=== PATIENT | female | born 1955 | race Caucasian/White ===

== ENCOUNTER 2021-09-28 17:39 | Inpatient (IN) | payer MEDICARE, MEDICAID, SELFPAY ==
[2021-09-28 17:48] VITALS: BP 176/92; PULSE 91; RESP 24; TEMP 36.6; O2SAT 94; BMI 25.0
--- NOTE | 2021-09-28 18:01 | CTR_ITS ---
PROCEDURE INFORMATION: Exam: CT Cervical Spine Without Contrast Exam date and time: 09/28/2021 6:01 PM Age: 65 years old Clinical indication: Injury or trauma; Fall; Blunt trauma TECHNIQUE: Imaging protocol: Computed tomography images of the cervical spine without contrast. Axial, coronal and sagittal reformatted images were created and reviewed. Radiation optimization: All CT scans at this facility use at least one of these dose optimization techniques: automated exposure control; mA and/or kV adjustment per patient size (includes targeted exams where dose is matched to clinical indication); or iterative reconstruction. COMPARISON: CT head wo con* [id number] 09/28/2021 6:27 PM RADIATION DOSE METRICS: Total DLP (mGy-cm): 558.72 FINDINGS: Bones/joints: Osteopenia. Straightening of the normal cervical lordosis. Congenital nonunion of the C1 posterior arch. No CT evidence of acute fracture, dislocation or subluxation. Minimal retrolisthesis of C3 on C4. Alignment otherwise anatomic. Minimal levoscoliosis. Vertebral body heights maintained. Discs/Spinal canal/Neural foramina: Multilevel degenerative changes, characterized by disc space narrowing, osteophytosis and uncovertebral and facet joint hypertrophy. Multilevel spinal canal and neural foraminal narrowing. Lungs: Grossly unremarkable. Soft tissues: Grossly unremarkable. CT/CT cervical spin wo con* [id number] IMPRESSION: 1. No CT evidence of acute cervical spine traumatic injury. 2. Additional findings, as above. Radiation Dose CTDIVOL = (mGy): DLP = 558.72 (mGy-cm)
--- NOTE | 2021-09-28 18:01 | CTR_ITS ---
PROCEDURE INFORMATION: Exam: CT Head Without Contrast Exam date and time: 09/28/2021 6:01 PM Age: 65 years old Clinical indication: Injury or trauma; Fall; Blunt trauma (contusions or hematomas) TECHNIQUE: Imaging protocol: Computed tomography of the head without contrast. Axial, coronal and sagittal reformatted images were created and reviewed. Radiation optimization: All CT scans at this facility use at least one of these dose optimization techniques: automated exposure control; mA and/or kV adjustment per patient size (includes targeted exams where dose is matched to clinical indication); or iterative reconstruction. COMPARISON: CT head wo con* [id number] 02/21/2015 5:11 PM RADIATION DOSE METRICS: Total DLP (mGy-cm): 785.69 FINDINGS: Brain: Subtle, patchy areas of hypoattenuation in the periventricular and subcortical white matter, nonspecific but suggestive of mild chronic small vessel ischemic disease. No CT evidence of acute intracranial hemorrhage or acute territorial infarction. No significant mass effect or midline shift. Basal cisterns patent. Cerebral ventricles: Prominence of the cortical sulci, cisterns and ventricular system, consistent with cerebral and cerebellar volume loss. Paranasal sinuses: Minimal ethmoid mucosal thickening.. No fluid levels. Mastoid air cells: Grossly unremarkable. Bones/joints: No acute osseous abnormality. Soft tissues: Left periorbital soft tissue injury. CT/CT head wo con* [id number] IMPRESSION: 1. No CT evidence of acute intracranial pathology. 2. Additional findings, as above. Radiation Dose CTDIVOL = (mGy): DLP = 785.69 (mGy-cm)
--- NOTE | 2021-09-28 18:01 | XRR_ITS ---
PROCEDURE INFORMATION: Exam: XR Chest Exam date and time: 09/28/2021 6:01 PM Age: 65 years old Clinical indication: Sternal or substernal pain; Patient HX: AMS; Additional info: Cp TECHNIQUE: Imaging protocol: XR of the chest. Views: 1 view. COMPARISON: CR Chest 1 [place] [id number] 09/05/2017 1:33 PM FINDINGS: Lungs: Streaky opacities at the lung bases, likely secondary to atelectasis and/or scarring. No consolidation. Pleural spaces: Unremarkable. No pleural effusion. No pneumothorax. Heart/Mediastinum: Unremarkable. No cardiomegaly. Vasculature: Senescent changes of the aorta. Bones/joints: No acute osseous abnormality. Mild degenerative changes of the spine and shoulders. XR/XR chest 1V portable [id number] IMPRESSION: No acute radiographic findings. Radiation Dose CTDIVOL = (mGy): DLP = (mGy-cm)
--- NOTE | 2021-09-28 18:02 | ECG_ITS ---
[facility] Test Date: 2021-09-28 Pat Name: Nikki Esteves Department: Room: Gender: Female [employer]ing V[employer] Tender: : 1955 Requested By: Jonathon Akers Order Number: [id number] Yvette MD: Karen García M.D. Measurements Intervals [place] Rate: 78 P: 78 IN: 153 QRS: 74 QRSD: 102 T: 69 QT: 384 QTc: 438 Interpretive Statements SINUS RHYTHM WITH SINUS ARRHYTHMIA Compared to ECG 09/05/2017 13:33:56 No significant changes Electronically Signed On 09-28-2021 20:46:13 WATCHSTANDER by Karen García M.D. [email or web address] [id number]
--- NOTE | 2021-09-28 18:28 | CTR_ITS ---
PROCEDURE INFORMATION: Exam: CT Maxillofacial Without Contrast Exam date and time: 09/28/2021 6:28 PM Age: 65 years old Clinical indication: Injury or trauma; Fall; Blunt trauma (contusions or hematomas); Forehead and orbit/periorbital; Left TECHNIQUE: Imaging protocol: Computed tomography images of the face without contrast. Axial, coronal and sagittal reformatted images were created and reviewed. Radiation optimization: All CT scans at this facility use at least one of these dose optimization techniques: automated exposure control; mA and/or kV adjustment per patient size (includes targeted exams where dose is matched to clinical indication); or iterative reconstruction. COMPARISON: CT head wo con* [id number] 09/28/2021 6:27 PM RADIATION DOSE METRICS: Total DLP (mGy-cm): 663.45 FINDINGS: Orbital cavity: Orbits are normal. Globes are unremarkable. Bones/joints: No acute fracture. Paranasal sinuses: Mild ethmoid mucosal thickening. Soft tissues: Left periorbital soft tissue injury. CT/CT facial bones wo con* [id number] IMPRESSION: 1. No acute facial bone fracture. 2. Additional findings, as above. Radiation Dose CTDIVOL = (mGy): DLP = 663.45 (mGy-cm)
--- NOTE | 2021-09-28 18:37 | W.ED.AMS ---
HPI - Altered Mental Status General: Chief Complaint: Altered Mental Status Stated Complaint: LARGE SWELLING TO THE EYE/ LEFT ARM Time Seen by Provider: 09/28/21 17:40 Source: patient and EMS Mode of arrival: EMS Limitations: altered mental status History of Present Illness: HPI narrative: 65-year-old female who per EMS lives a day apartment complex her neighbors states that she is usually extremely active and I would seen her in 2 days. And went to check on her and found her down on the floor with bruising and altered. Here patient is very altered she is able to tell me her name but is confused does not know the year does not know what happened she does have bruising to the left side of her head she was unable to stand patient is very dirty Review of Systems General: Reports: ROS unobtainable due to mental status Physical Exam Const: COMMON NORMALS: negative for patient oriented x3 EXAM LIMITATIONS: altered mental status GENERAL APPEARANCE: in distress HENMT: COMMON NORMALS: normocephalic HEAD & SCALP: normocephalic OTHER: bruising to left forehead Eye: COMMON NORMALS: Equal, round and reactive pupils present and EOMs intact bilaterally PUPIL: Yes Equal, round and reactive pupils present Neck/C-Spine: COMMON NORMALS: full ROM and supple Chest: COMMONS NORMALS: normal inspection of the chest and normal palpation of entire chest wall Resp: COMMON NORMALS: normal respiratory effort, No retractions, No use of accessory muscles and clear to auscultation bilaterally AUSCULTATION: clear to auscultation bilaterally Cardio: COMMON NORMALS: regular rate, regular rhythm and No murmurs present (Cardio) RATE: regular rate RHYTHM: regular rhythm GI: COMMON NORMALS: Normal to inspection, nondistended, normoactive bowel sounds present, Soft to palpation, non-tender and no masses PALPATION: Yes Soft to palpation Extremity: COMMON NORMALS: normal to inspection and full ROM Neuro: COMMON NORMALS: moves all extremities and no focal motor deficits; negative for patient oriented x3 Psych: COMMON NORMALS: cooperative; negative for mental status grossly normal and negative for Normal thought process present THOUGHT PROCESS: abnormal Skin: COMMON NORMALS: no rashes or lesions noted and no wounds GENERAL SKIN EXAM: no rashes or lesions noted Course Vital Signs: Vital signs: Vital Signs Temperature 97.9 F 09/28/21 18:59 Pulse Rate 94 09/28/21 20:12 Respiratory Rate 22 H 09/28/21 20:12 Blood Pressure 148/99 09/28/21 20:12 Pulse Oximetry 95 09/28/21 20:12 MDM - Altered Mental Status MDM Narrative: Medical decision making narrative: Patient presents here with altered mental status along with weakness patient here is only able to tell me her name does have bruising from her fall no signs of acute stroke or hemorrhage. Patient's last known normal was 2 days ago and she still quite weak possible UTI patient given Rocephin will admit at this time spoke to hospitalist. Lab Data: Labs: Lab Results 09/28/21 09/28/21 09/28/21 18:02 18:20 18:20 WBC 13.5 10^3/uL H 10 ^3/uL (4.0-10.0) RBC 5.45 10^6/uL H 10 ^6/uL (4.1-5.3) Hgb 17.4 g/dL H g/dL (11.5-15.3) Hct 51.1 % H % (37.0-47.0) MCV 93.8 fl fl (81-99) MCH 31.9 pg pg (28.0-34.0) MCHC 34.1 g/dL g/dL (30.0-36.0) RDW 13.2 % % (12.1-15.1) Plt Count 148 10^3/cmm 10^3 /cmm (130-400) MPV 11.5 fL H fL (7.4-10.4) Neut % (Auto) 81.0 % % Lymph % (Auto) 11.0 % % [place] % (Auto) 7.1 % % Eos % (Auto) 0.1 % % Baso % (Auto) 0.5 % % Neut # (Auto) 10.94 10^3/uL H 1 0^3/uL (1.8-7.7) Lymph # (Auto) 1.5 10^3/uL 10^3/ uL (0.8-4.8) [place] # (Auto) 1.0 10^3/uL H 10^ 3/uL (0.2-0.9) Eos # (Auto) 0.0 10^3/uL 10^3/ uL (0.0-0.8) Baso # (Auto) 0.1 10^3/uL 10^3/ uL (0.0-0.1) Nucleated RBC % (a uto) 0 % % Nucleated RBCs # 0.0 /100WBC /100W BC PT INR Sodium Cancelled Potassium Cancelled Chloride Cancelled Carbon Dioxide Cancelled Anion Gap Cancelled BUN Cancelled Creatinine Cancelled GFR Calculation Cancelled Glucose Cancelled Calculated Osmolal ity Cancelled Calcium Cancelled Total Bilirubin Cancelled AST Cancelled ALT Cancelled Alkaline Phosphata se Cancelled Creatine Kinase Cancelled Total Protein Cancelled Albumin Cancelled Globulin Cancelled Urine Color Yellow (Yellow) Urine Appearance Clear (CLEAR) Urine pH 5 (5-7) Ur Specific Gravit y 1.020 (1.005-1.030) Urine Protein 1+ H (Negative) Urine Glucose (UA) Norm (Normal) Urine Ketones 1+ H (Negative) Urine Blood Neg (Negative) Urine Nitrate Negative (Negative) Urine Bilirubin 2+ H (Negative) Urine Urobilinogen 1 mg/dL H mg/dL (Negative) Ur Leukocyte Cherise ase Trace H (Negative) Urine RBC 0-4 /hpf H /hpf (0-2) Urine WBC 5-10 /hpf H /hpf (0-5) Ur Squamous Epith Cells 0-4 /hpf H /hpf (0-5) Amorphous Sediment Not Reportable Urine Bacteria 2+ /hpf H /hpf (NONE) Urine Mucus 1+ /hpf /hpf 09/28/21 09/28/21 09/28/21 18:20 19:15 19:15 WBC RBC Hgb Hct MCV MCH MCHC RDW Plt Count MPV Neut % (Auto) Lymph % (Auto) [place] % (Auto) Eos % (Auto) Baso % (Auto) Neut # (Auto) Lymph # (Auto) [place] # (Auto) Eos # (Auto) Baso # (Auto) Nucleated RBC % (a uto) Nucleated RBCs # PT Cancelled 14.20 SECONDS SEC ONDS (12.1-14.9) INR Cancelled 1.07 (0.8-1.2) Sodium 135 mmol/L L mmol /L (136-145) Potassium 4.2 mmol/L mmol/L (3.5-5.1) Chloride 93 mmol/L L mmol/ L (98-107) Carbon Dioxide 26 mmol/L mmol/L (22-29) Anion Gap 20.2 H (5-19) BUN 39 mg/dL H mg/dL (8-23) Creatinine 1.5 mg/dL H mg/dL (0.5-0.9) GFR Calculation 34.7 mL/min L mL/ min (90-130) Glucose 291 mg/dL H mg/dL (65-115) Calculated Osmolal ity 300 mOsm/kg H mOs m/kg (285-295) Calcium 10.0 mg/dL mg/dL (8.5-10.5) Total Bilirubin 0.7 mg/dL mg/dL (0.15-1.2) AST 17 U/L U/L (0-32) ALT 18 U/L U/L (0-33) Alkaline Phosphata se 98 IU/L IU/L (35-105) Creatine Kinase 253 U/L H U/L (26-192) Total Protein 7.7 g/dL g/dL (6.6-8.7) Albumin 4.4 g/dL g/dL (3.5-5.2) Globulin 3.3 g/dL g/dL (1.3-4.6) Urine Color Urine Appearance Urine pH Ur Specific Gravit y Urine Protein Urine Glucose (UA) Urine Ketones Urine Blood Urine Nitrate Urine Bilirubin Urine Urobilinogen Ur Leukocyte Cherise ase Urine RBC Urine WBC Ur Squamous Epith Cells Amorphous Sediment Urine Bacteria Urine Mucus Imaging Data^: CT Head: Radiologist's impression: [address] [address] [address] Scan Report Signed Patient: Nikki Esteves Unit #: [id number] : 1955 Age/Sex: 65 / F ADM Date: 09/28/21 Loc: ER Room/Bed: Attending Dr: Ordering Provider/Ordering MD: Jonathon Akers MD Date of Service: 09/28/21 Procedure(s): CT head wo con* [id number] Accession Number(s): [id number] Report Number: [id number] PROCEDURE INFORMATION: Exam: CT Head Without Contrast Exam date and time: 09/28/2021 6:01 PM Age: 65 years old Clinical indication: Injury or trauma; Fall; Blunt trauma (contusions or hematomas) TECHNIQUE: Imaging protocol: Computed tomography of the head without contrast. Axial, coronal and sagittal reformatted images were created and reviewed. Radiation optimization: All CT scans at this facility use at least one of these dose optimization techniques: automated exposure control; mA and/or kV adjustment per patient size (includes targeted exams where dose is matched to clinical indication); or iterative reconstruction. COMPARISON: CT head wo con* [id number] 02/21/2015 5:11 PM RADIATION DOSE METRICS: Total DLP (mGy-cm): 785.69 FINDINGS: Brain: Subtle, patchy areas of hypoattenuation in the periventricular and subcortical white matter, nonspecific but suggestive of mild chronic small vessel ischemic disease. No CT evidence of acute intracranial hemorrhage or acute territorial infarction. No significant mass effect or midline shift. Basal cisterns patent. Cerebral ventricles: Prominence of the cortical sulci, cisterns and ventricular system, consistent with cerebral and cerebellar volume loss. Paranasal sinuses: Minimal ethmoid mucosal thickening.. No fluid levels. Mastoid air cells: Grossly unremarkable. Bones/joints: No acute osseous abnormality. Soft tissues: Left periorbital soft tissue injury. CT/CT head wo con* [id number] IMPRESSION: 1. No CT evidence of acute intracranial pathology. 2. Additional findings, as above. Radiation Dose CTDIVOL = (mGy): DLP = 785.69 (mGy-cm) Dictated By: Rodrigo Schultz MD Signed By: Rodrigo Schultz MD Signed Date/Time: 09/28/211909 DD/ [address]: Radiologist's impression: [address] [address] [address] Scan Report Signed Patient: Nikki Esteves Unit #: [id number] : 1955 Age/Sex: 65 / F ADM Date: 09/28/21 Loc: ER Room/Bed: Attending Dr: Ordering Provider/Ordering MD: Jonathon Akers MD Date of Service: 09/28/21 Procedure(s): CT cervical spin wo con* [id number] Accession Number(s): [id number] Report Number: [id number] PROCEDURE INFORMATION: Exam: CT Cervical Spine Without Contrast Exam date and time: 09/28/2021 6:01 PM Age: 65 years old Clinical indication: Injury or trauma; Fall; Blunt trauma TECHNIQUE: Imaging protocol: Computed tomography images of the cervical spine without contrast. Axial, coronal and sagittal reformatted images were created and reviewed. Radiation optimization: All CT scans at this facility use at least one of these dose optimization techniques: automated exposure control; mA and/or kV adjustment per patient size (includes targeted exams where dose is matched to clinical indication); or iterative reconstruction. COMPARISON: CT head wo con* [id number] 09/28/2021 6:27 PM RADIATION DOSE METRICS: Total DLP (mGy-cm): 558.72 FINDINGS: Bones/joints: Osteopenia. Straightening of the normal cervical lordosis. Congenital nonunion of the C1 posterior arch. No CT evidence of acute fracture, dislocation or subluxation. Minimal retrolisthesis of C3 on C4. Alignment otherwise anatomic. Minimal levoscoliosis. Vertebral body heights maintained. Discs/Spinal canal/Neural foramina: Multilevel degenerative changes, characterized by disc space narrowing, osteophytosis and uncovertebral and facet joint hypertrophy. Multilevel spinal canal and neural foraminal narrowing. Lungs: Grossly unremarkable. Soft tissues: Grossly unremarkable. CT/CT cervical spin wo con* [id number] IMPRESSION: 1. No CT evidence of acute cervical spine traumatic injury. 2. Additional findings, as above. Radiation Dose CTDIVOL = (mGy): DLP = 558.72 (mGy-cm) Dictated By: Rodrigo Schultz MD Signed By: Rodrigo Schultz MD Signed Date/Time: 09/28/211911 DD/ 00 EKG Data^: EKG 1: Attestation: I personally reviewed and interpreted this EKG as follows: EKG interpretation date: 09/28/21 EKG interpretation time: 19:01 Interpretation: nsr hr [address] or t wave abnormalities qrs 102 qtc 417 Discharge Plan Discharge Patient Disposition: Admitted As Inpatient Clinical Impression: Altered mental status, Weakness Condition: Stable Coding Level of Care Code ED Supervisor Cloth Winding for Sorin Velazco
[2021-09-28 18:40] LABS: Basophils # 0.1 10^3/uL (0.0-0.1); Basophils % 0.5 %; Eosinophils % 0.1 %; Hematocrit 51.1 % (37.0-47.0); Hemoglobin 17.4 g/dL (11.5-15.3); Lymphocytes # 1.5 10^3/uL (0.8-4.8); Mean Corpuscular HGB Conc 34.1 g/dL (30.0-36.0); Mean Corpuscular Hemoglobin 31.9 pg (28.0-34.0); Mean Corpuscular Volume 93.8 fl (81-99); Mean Platelet Volume 11.5 fL (7.4-10.4); Monocytes % 7.1 %; Neutrophils # 10.94 10^3/uL (1.8-7.7); Nucleated Red Blood Cells % 0 %; Platelet Count 148 10^3/cmm (130-400); Red Blood Count 5.45 10^6/uL (4.1-5.3); Red Cell Distribution Width 13.2 % (12.1-15.1); White Blood Count 13.5 10^3/uL (4.0-10.0)
[2021-09-28 18:45] LABS: Slide Review Slide Review Perform
--- NOTE | 2021-09-28 18:50 | XRR_ITS ---
PROCEDURE INFORMATION: Exam: XR Left Elbow Exam date and time: 09/28/2021 6:50 PM Age: 65 years old Clinical indication: Injury or trauma; Fall; Blunt trauma (contusions or hematomas); Elbow; Left; Injury date: 09/28/2021; Injury details: Fell today; AMS TECHNIQUE: Imaging protocol: XR Left elbow. Views: 3 or more views. COMPARISON: No relevant prior studies available. FINDINGS: Bones/joints: No radiographic evidence of acute fracture or dislocation. Alignment anatomic. Joint spaces preserved. No definite effusion. Soft tissues: Grossly unremarkable. XR/XR elbow LT min 3V* [id number] IMPRESSION: No acute radiographic findings. Radiation Dose CTDIVOL = (mGy): DLP = (mGy-cm)
[2021-09-28 18:59] VITALS: BP 136/100; PULSE 73; RESP 20; TEMP 36.6; O2SAT 96
[2021-09-28 19:17] LABS: Protein Urine 1+ (Negative); Urine Appearance Clear (CLEAR); Urine Color Yellow (Yellow); pH Urine 5 (5-7)
[2021-09-28 19:18] LABS: Add Urine Microscopic? YES; Bilirubin Urine 2+ (Negative); Blood Urine Neg (Negative); Glucose Urine UA Norm (Normal); Ketones Urine 1+ (Negative); Leukocyte Esterase Urine Trace (Negative); Nitrate Urine Negative (Negative); Urobilinogen Urine 1 mg/dL (Negative)
[2021-09-28 19:20] LABS: RBC Urine 0-4 /hpf (0-2)
[2021-09-28 19:21] LABS: Add Urine Culture? Yes; Bacteria Urine 2+ /hpf; Mucus Urine 1+ /hpf; Squamous Epithelial Cell Urine 0-4 /hpf (0-5)
[2021-09-28 19:56] LABS: Alanine Aminotransferase 18 U/L (0-33); Albumin Level 4.4 g/dL (3.5-5.2); Alkaline Phosphatase 98 IU/L (35-105); Anion Gap 20.2 (5-19); Aspartate Amino Transferase 17 U/L (0-32); Blood Urea Nitrogen 39 mg/dL (8-23); Carbon Dioxide 26 mmol/L (22-29); Chloride 93 mmol/L (98-107); Creatine Phosphokinase 253 U/L (26-192); Globulin 3.3 g/dL (1.3-4.6); Glomerular Filtration Rate 34.7 mL/min (90-130); Glucose 291 mg/dL (65-115); Osmolality Calculated 300 mOsm/kg (285-295); Potassium 4.2 mmol/L (3.5-5.1); Sodium 135 mmol/L (136-145); Total Bilirubin 0.7 mg/dL (0.15-1.2); Total Protein 7.7 g/dL (6.6-8.7)
[2021-09-28] MEDS: sodium chloride 0.9% 1,000 ML 999 ML IV (20:00)
[2021-09-28 20:01] LABS: INR 1.07 (0.8-1.2)
[2021-09-28 20:12] VITALS: BP 148/99; PULSE 94; RESP 22; O2SAT 95
[2021-09-28 20:38] LABS: Acetaminophen < 5.0 ug/mL (10-30); Alcohol Level < 10 mg/dL (0-10); Salicylate < 0.3 mg/dL (3-10)
--- NOTE | 2021-09-28 22:12 | PM.HP ---
Providers/Chief Complaint Primary Care Provider: Nikki Rahman DO Chief Complaint: LARGE SWELLING TO THE EYE/ LEFT ARM History of Present Illness Nikki Esteves is a 65 year old female was found confused on the floor of her house. Was seen in her regular state of health about 2 days ago. Was brought by EMS to emergency room. Here her mental status improved. She is currently awake and alert. However she is noncooperative. She is not willing to answer to my questions and did not allow me to examine her. She denies any active complaints. She answers no to every question that I asked. Her past medical history is unknown. Review of Systems General: Reports: ROS unobtainable due to mental status Vitals/I&O/Wt Last Vital Signs Temp 97.9 F 09/28/21 18:59 Pulse 94 09/28/21 20:12 Resp 22 H 09/28/21 20:12 BP 148/99 09/28/21 20:12 Pulse Ox 95 09/28/21 20:12 Weight last 48 hrs Weight 68.039 kg Physical Exam Narrative: EXAM NARRATIVE: The patient is awake and alert. No acute distress. Calm when left alone. No dysarthria or aphasia. Extraocular muscles are intact. Multiple bruises on the forehead. She did not lower her mask to evaluate the lower part of the face. Neck seems to be supple. No evidence of tenderness when she moves. No JVD. Midline trachea. No respiratory distress. Aeration seems to be normal. No distant wheezes. Abdomen is soft. Obese. Extremities she moves all her extremities. No peripheral cyanosis. Data : 09/28/21 18:20 09/28/21 19:15 Other Labs: Laboratory Results WBC 13.5 10^3/uL (4.0-10.0) H 09/28/21 18:20 RBC 5.45 10^6/uL (4.1-5.3) H 09/28/21 18:20 Hgb 17.4 g/dL (11.5-15.3) H 09/28/21 18:20 Hct 51.1 % (37.0-47.0) H 09/28/21 18:20 MCV 93.8 fl (81-99) 09/28/21 18:20 MCH 31.9 pg (28.0-34.0) 09/28/21 18:20 MCHC 34.1 g/dL (30.0-36.0) 09/28/21 18:20 RDW 13.2 % (12.1-15.1) 09/28/21 18:20 Plt Count 148 10^3/cmm (130-400) 09/28/21 18:20 MPV 11.5 fL (7.4-10.4) H 09/28/21 18:20 Neut % (Auto) 81.0 % 09/28/21 18:20 Lymph % (Auto) 11.0 % 09/28/21 18:20 [place] % (Auto) 7.1 % 09/28/21 18:20 Eos % (Auto) 0.1 % 09/28/21 18:20 Baso % (Auto) 0.5 % 09/28/21 18:20 Neut # (Auto) 10.94 10^3/uL (1.8-7.7) H 09/28/21 18:20 Lymph # (Auto) 1.5 10^3/uL (0.8-4.8) 09/28/21 18:20 [place] # (Auto) 1.0 10^3/uL (0.2-0.9) H 09/28/21 18:20 Eos # (Auto) 0.0 10^3/uL (0.0-0.8) 09/28/21 18:20 Baso # (Auto) 0.1 10^3/uL (0.0-0.1) 09/28/21 18:20 Nucleated RBC % (auto) 0 % 09/28/21 18:20 Nucleated RBCs # 0.0 /100WBC 09/28/21 18:20 PT 14.20 SECONDS (12.1-14.9) 09/28/21 19:15 INR 1.07 (0.8-1.2) 09/28/21 19:15 Sodium 135 mmol/L (136-145) L 09/28/21 19:15 Potassium 4.2 mmol/L (3.5-5.1) 09/28/21 19:15 Chloride 93 mmol/L (98-107) L 09/28/21 19:15 Carbon Dioxide 26 mmol/L (22-29) 09/28/21 19:15 Anion Gap 20.2 (5-19) H 09/28/21 19:15 BUN 39 mg/dL (8-23) H 09/28/21 19:15 Creatinine 1.5 mg/dL (0.5-0.9) H 09/28/21 19:15 GFR Calculation 34.7 mL/min (90-130) L 09/28/21 19:15 Glucose 291 mg/dL (65-115) H 09/28/21 19:15 Calculated Osmolality 300 mOsm/kg (285-295) H 09/28/21 19:15 Calcium 10.0 mg/dL (8.5-10.5) 09/28/21 19:15 Total Bilirubin 0.7 mg/dL (0.15-1.2) 09/28/21 19:15 AST 17 U/L (0-32) 09/28/21 19:15 ALT 18 U/L (0-33) 09/28/21 19:15 Alkaline Phosphatase 98 IU/L (35-105) 09/28/21 19:15 Creatine Kinase 253 U/L (26-192) H 09/28/21 19:15 Total Protein 7.7 g/dL (6.6-8.7) 09/28/21 19:15 Albumin 4.4 g/dL (3.5-5.2) 09/28/21 19:15 Globulin 3.3 g/dL (1.3-4.6) 09/28/21 19:15 Urine Color Yellow (Yellow) 09/28/21 18:02 Urine Appearance Clear (CLEAR) 09/28/21 18:02 Urine pH 5 (5-7) 09/28/21 18:02 Ur Specific Fults 1.020 (1.005-1.030) 09/28/21 18:02 Urine Protein 1+ (Negative) H 09/28/21 18:02 Urine Glucose (UA) Norm (Normal) 09/28/21 18: Urine Ketones 1+ (Negative) H 09/28/21 18:02 Urine Blood Neg (Negative) 09/28/21 18: Urine Nitrate Negative (Negative) 09/28/21 18: Urine Bilirubin 2+ (Negative) H 09/28/21 18: Urine Urobilinogen 1 mg/dL (Negative) H 09/28/21 18:02 Ur Leukocyte Esterase Trace (Negative) H 09/28/21 18:02 Urine RBC 0-4 /hpf (0-2) H 09/28/21 18:02 Urine WBC 5-10 /hpf (0-5) H 09/28/21 18:02 Ur Squamous Epith Cells 0-4 /hpf (0-5) H 09/28/21 18:02 Amorphous Sediment Not Reportable 09/28/21 18:02 Urine Bacteria 2+ /hpf (NONE) H 09/28/21 18:02 Urine Mucus 1+ /hpf 09/28/21 18:02 Salicylates < 0.3 mg/dL (3-10) L 09/28/21 19:15 Acetaminophen < 5.0 ug/mL (10-30) L 09/28/21 19:15 Ethyl Alcohol < 10 mg/dL (0-10) 09/28/21 19:[address] 09/28/21 18:01 IMPRESSION: 1. No CT evidence of acute cervical spine traumatic injury. 2. Additional findings, as above. Radiation Dose CTDIVOL = (mGy): DLP = 558.72 (mGy-cm) Chest X-Ray 09/28/21 18:01 IMPRESSION: No acute radiographic findings. Radiation Dose CTDIVOL = (mGy): DLP = (mGy-cm) Head CT 09/28/21 18:01 IMPRESSION: 1. No CT evidence of acute intracranial pathology. 2. Additional findings, as above. Radiation Dose CTDIVOL = (mGy): DLP = 785.69 (mGy-cm) Face CT 09/28/21 18:28 IMPRESSION: 1. No acute facial bone fracture. 2. Additional findings, as above. Radiation Dose CTDIVOL = (mGy): DLP = 663.45 (mGy-cm) Elbow X-Ray 09/28/21 18:50 IMPRESSION: No acute radiographic findings. Radiation Dose CTDIVOL = (mGy): DLP = (mGy-cm) A&P Assessment and plan (1) Altered mental status: Status: Acute (2) Weakness: Status: Acute (3) Dehydration: Status: Acute (4) UTI (urinary tract infection): Status: Acute Additional A&P Information 65-year-old female with unknown past medical history who is brought by EMS due to confusion, a fall in her house. She is found to have UTI, dehydration. She has hyperglycemia. Mental status has improved in the emergency room. Physical examination and interview are incomplete due to uncooperative patient. Altered mental status. Most likely multifactorial. Dehydration and UTI are suspected. We will closely monitor her. We will try to obtain more history from her providers in the morning if she does not improve and provide more history herself. UTI. We will continue Rocephin. Will wait for UCS. Dehydration. Will hydrate and monitor. Will replace electrolytes as needed. Hyperglycemia. We will start her on insulin sliding scale. We will check her A1c level. DVT prophylaxis. SCDs. Will decide on anticoagulants after completion of interview to make sure that there are no contraindications for use of blood thinners. Full code for now. Attestations Medical Necessity Statement*: Based on my assessment of patient's current condition and findings I expect that the patient will spend more than 2 midnights in the hospital. Coding Level of Care Code Acute Emergency Communications Officer for Sorin Velazco Diagnoses Altered mental status R41.82 Weakness R53.1 Dehydration E86.0 UTI (urinary tract infection) N39.0
[2021-09-28 22:23] VITALS: BP 132/98; PULSE 84; RESP 18; O2SAT 95
[2021-09-28 22:24] VITALS: BP 132/98; PULSE 84; RESP 18; O2SAT 95
[2021-09-28 23:30] VITALS: BMI 25.0
[2021-09-29] VITALS (7 sets, daily range): BP systolic 115–182; BP diastolic 70–98; PULSE 63–101; RESP 14–17; TEMP 36.3–37.2; O2SAT 88–98
[2021-09-29 00:02] LABS: Estmated Average Glucose 240
[2021-09-29] MEDS: cefTRIAXone 1,000 MG in sodium chloride 0.9% (plus) 50 ML 100 MG IV ×2 (00:23→21:21)
[2021-09-29] MEDS: sodium chloride 0.9% 1,000 ML 75 ML IV (00:23)
[2021-09-29 01:57] LABS: Amphetamines Screen Urine Negative (Negative); Barbiturates Screen Urine Negative (Negative); Benzodiazepines Screen Urine Negative (Negative); Cocaine Screen Urine Negative (Negative); Opiate Screen Urine Negative (Negative); PCP Screen Urine Negative (Negative); THC Screen Urine Negative (Negative)
[2021-09-29 04:51] LABS: Basophils # 0.1 10^3/uL (0.0-0.1); Basophils % 0.7 %; Eosinophils # 0.2 10^3/uL (0.0-0.8); Eosinophils % 1.4 %; Hematocrit 46.3 % (37.0-47.0); Hemoglobin 15.6 g/dL (11.5-15.3); Lymphocytes # 2.4 10^3/uL (0.8-4.8); Lymphocytes % 20.9 %; Mean Corpuscular HGB Conc 33.7 g/dL (30.0-36.0); Mean Corpuscular Hemoglobin 31.8 pg (28.0-34.0); Mean Corpuscular Volume 94.5 fl (81-99); Mean Platelet Volume 9.7 fL (7.4-10.4); Monocytes # 1.1 10^3/uL (0.2-0.9); Neutrophils # 7.51 10^3/uL (1.8-7.7); Neutrophils % 66.6 %; Nucleated Red Blood Cells % 0 %; Platelet Count 205 10^3/cmm (130-400); Red Cell Distribution Width 12.2 % (12.1-15.1); White Blood Count 11.3 10^3/uL (4.0-10.0)
[2021-09-29 05:15] LABS: Alanine Aminotransferase 15 U/L (0-33); Albumin Level 3.8 g/dL (3.5-5.2); Alkaline Phosphatase 85 IU/L (35-105); Anion Gap 18.6 (5-19); Aspartate Amino Transferase 15 U/L (0-32); Blood Urea Nitrogen 30 mg/dL (8-23); Calcium 8.7 mg/dL (8.5-10.5); Carbon Dioxide 24 mmol/L (22-29); Chloride 103 mmol/L (98-107); Globulin 2.8 g/dL (1.3-4.6); Glomerular Filtration Rate 49.7 mL/min (90-130); Glucose 228 mg/dL (65-115); Osmolality Calculated 307 mOsm/kg (285-295); Phosphorus 3.2 mg/dL (2.5-4.5); Potassium 3.6 mmol/L (3.5-5.1); Sodium 142 mmol/L (136-145); Total Bilirubin 0.5 mg/dL (0.15-1.2); Total Protein 6.6 g/dL (6.6-8.7)
[2021-09-29 06:44] LABS: Glucose Point of Care 239 mg/dL (70-110)
[2021-09-29] MEDS: insulin lispro 100 unit/1 mL SUBCUT ×4 (08:44→21:21)
--- NOTE | 2021-09-29 11:01 | PC.PHAR ---
pt states she takes care of her own medication-pt states she is still taking eliquis 5mg bid rx filled last 08/09/21 30d/s-pt states she is still takes lipitor 40mg daily pharmacy last filled 05/20/21 30d/s-pt states she is no longer taking lisinopril 10mg daily or metoprolol tartrate 50mg bid last filled on 05/20/21 30d/s-
[2021-09-29 11:59] LABS: Glucose Point of Care 196 mg/dL (70-110)
--- NOTE | 2021-09-29 14:32 | PM.PN ---
Subjective Subjective: Interval history: Patient was seen and examined this morning. She states she fell but other than that is unable to provide me with any history. She thinks that here 2000 but now she is in the hospital and knows her date of . Does not member how she fell but does remember that she fell. She does not recall an feeling lightheaded or dizzy prior to the fall. She also states she did not trip on anything she remembers. She lives alone at home. Vitals/I&O/Wt Last Vital Signs Temp 98.7 F 09/29/21 11:15 Pulse 88 09/29/21 11:15 Resp 17 09/29/21 11:15 BP 134/77 09/29/21 11:15 Pulse Ox 98 09/29/21 11:15 09/28/21 09/29/21 09/29/21 22:59 06:59 14:59 Intake Total 1000 / 1000 110 / 1110 360 / 360 Balance 1000 / 1000 110 / 1110 360 / 360 Weight last 48 hrs Weight 68.039 kg Weight 68.039 kg Physical Exam Narrative: EXAM NARRATIVE: General: Alert oriented x2, patient seen sitting up in bed appearing comfortable. HEENT: Normocephalic, atraumatic, EOMI, breathing room air. Patient does have a bruise around her left eye. Head does not have any lesions or signs of trauma. Cardio: Regular rate rhythm, normal S1-S2, no murmurs rubs gallops, Respiratory: Diminished bilateral air entry, no wheezes no rhonchi appreciated GI: Abdomen soft, nontender, nondistended, bowel sounds + Behavior: Appropriate and cooperative Extremities: Pulses 2+, no edema, no cyanosis. No tenderness to palpation at extremities. Neuro: Neurologically intact no focal neurological deficits. Walking test not performed. Data : 09/29/21 04:21 09/29/21 04:21 Micro: Microbiology 09/28/21 19:25 Blood Culture - Preliminary Blood SPECIMEN COLLECTED 09/28/21 19:25 Blood Culture - Preliminary Blood SPECIMEN COLLECTED A&P Assessment and plan (1) Altered mental status: Status: Acute (2) Weakness: Status: Acute (3) Dehydration: Status: Acute (4) UTI (urinary tract infection): Status: Acute Additional A&P Information 65-year-old female with unknown past medical history who is brought by EMS due to confusion, a fall in her house. She is found to have UTI, dehydration. She has hyperglycemia. Mental status has improved in the emergency room. Physical examination and interview are incomplete due to uncooperative patient admission. History was obtained today from the family. I spoke to patient's both sons over the phone and a conference call. They state patient does fall frequently at home on a daily basis and lives alone. She has had a stroke prior but they were unable to tell me how long ago. She also is a history of having an AL in the past and has placed cardiac stents. She does have diabetes mellitus with a high hemoglobin A1c but has not been placed on insulin by primary care doctor because patient is noncompliant with her medications and does tend to overdose on her meds because she sometimes forget if she has taken medications or not. Patient also is on Eliquis and cilostazol. One of the patient's son also states that patient has been taking pain pills including Xanax and if the doctor does not prescribe any she will tend to buy from the street. But they also state that recently they do not believe she has been taking any of those medications. They believe patient has peripheral neuropathy and cannot feel her feet and that is why tends to fall a lot. She did have a work-up done at [facility] and there was peripheral arterial disease diagnosed. The son states that there was 60 to 70% blockage in the vessels in her legs he does not remember which doctor they saw and does not remember any other specifics. Patient's primary care doctor is Dr. Reilly in [place]. [phone]. Patient is a smoker but does not drink alcohol. In the past multiple times a prison or correction facility placement has been brought up by the family but patient did not want to go there because she did not like the fact that her medications will be monitored. Both her sons believe that this is probably the reason why she opted not to go to a nursing facility. They do acknowledge that patient could benefit from a supervised living facility at this point due to patient's multiple fall history, being on a blood thinner and tending to overdose on medications. He also states she has good days and bad days and baseline she does have some confusion. They are unsure of her eating habits. Nearest family lives 5 hours away. #Altered mental status. Most likely multifactorial. Dehydration and UTI are suspected at admission. Altered mental status has resolved at this point. It seems patient is back to her baseline after speaking to family. Urine culture is pending. CT head negative. Face CT, chest x-ray, cervical C-spine, elbow x-ray unremarkable. No fractures identified. Patient will need case management referral. Physical therapy occupational therapy referral. #UTI. We will continue Rocephin. Will wait for UCS. #Dehydration. Will hydrate and monitor. Will replace electrolytes as needed. #Type 2 DM with complication of peripheral neuropathy: Presented with hyperglycemia. We will start her on insulin sliding scale. Hemoglobin A1c at 10. She has not been placed on insulin by primary care provider due to patient's history of tending to overdose and missing medications and being noncompliant. There is a strong concern of hypoglycemia as per the family due to medication misuse. For now we will keep patient on insulin sliding scale while in the hospital. DVT prophylaxis. SCDs. Patient is on Eliquis which has been resumed at this point. Full code Attestations Medical Necessity Statement*: Greater than 48-hour hospital stay Time Spent in Patient Care: Greater than 35 minutes Coding Level of Care Code Acute Fabric And Accessories Estimator for Chg Fwd Diagnoses Altered mental status R41.82 Weakness R53.1 Dehydration E86.0 UTI (urinary tract infection) N39.0
--- NOTE | 2021-09-29 14:43 | PM.EVENT ---
Event Note Event Note: History was obtained today from the family. I spoke to patient's both sons over the phone and a conference call. They state patient does fall frequently at home on a daily basis and lives alone. She has had a stroke prior but they were unable to tell me how long ago. She also is a history of having an HI in the past and has placed cardiac stents. She does have diabetes mellitus with a high hemoglobin A1c but has not been placed on insulin by primary care doctor because patient is noncompliant with her medications and does tend to overdose on her meds because she sometimes forget if she has taken medications or not. Patient also is on Eliquis and cilostazol. One of the patient's son also states that patient has been taking pain pills including Xanax and if the doctor does not prescribe any she will tend to buy from the street. But they also state that recently they do not believe she has been taking any of those medications. They believe patient has peripheral neuropathy and cannot feel her feet and that is why tends to fall a lot. She did have a work-up done at [facility] and there was peripheral arterial disease diagnosed. The son states that there was 60 to 70% blockage in the vessels in her legs he does not remember which doctor they saw and does not remember any other specifics. Patient's primary care doctor is Dr. Reilly in [place]. [phone]. Patient is a smoker but does not drink alcohol. In the past multiple times a skilled nursing or [facility] facility placement has been brought up by the family but patient did not want to go there because she did not like the fact that her medications will be monitored. Both her sons believe that this is probably the reason why she opted not to go to a nursing facility. They do acknowledge that patient could benefit from a supervised living facility at this point due to patient's multiple fall history, being on a blood thinner and tending to overdose on medications. He also states she has good days and bad days and baseline she does have some confusion. They are unsure of her eating habits. Nearest family lives 5 hours away. Event Notes Attestations Time Spent in Patient Care: Greater than 35 minutes
[2021-09-29 15:40] LABS: Folate Level 13.4 ng/mL (4.8-37.3)
[2021-09-29 15:57] LABS: Vitamin B12 283 pg/mL (232-1245)
[2021-09-29 16:58] LABS: Glucose Point of Care 290 mg/dL (70-110)
[2021-09-29 21:20] LABS: Glucose Point of Care 170 mg/dL (70-110)
[2021-09-29] MEDS: trazodone 50 mg Tablet PO (21:49)
[2021-09-30 02:04] VITALS: O2SAT 94
[2021-09-30 04:00] VITALS: BP 178/82; PULSE 96; RESP 12; TEMP 36.6; O2SAT 94
[2021-09-30] MEDS: sodium chloride 0.9% 1,000 ML 75 ML IV ×2 (04:35→04:37)
[2021-09-30 05:24] LABS: Basophils # 0.1 10^3/uL (0.0-0.1); Basophils % 0.9 %; Eosinophils # 0.3 10^3/uL (0.0-0.8); Eosinophils % 2.9 %; Hemoglobin 15.3 g/dL (11.5-15.3); Lymphocytes # 2.5 10^3/uL (0.8-4.8); Lymphocytes % 28.8 %; Mean Corpuscular HGB Conc 33.3 g/dL (30.0-36.0); Mean Corpuscular Hemoglobin 32.1 pg (28.0-34.0); Mean Corpuscular Volume 96.4 fl (81-99); Mean Platelet Volume 9.6 fL (7.4-10.4); Monocytes # 0.8 10^3/uL (0.2-0.9); Monocytes % 9.8 %; Neutrophils # 4.88 10^3/uL (1.8-7.7); Neutrophils % 57.2 %; Nucleated Red Blood Cells % 0 %; Platelet Count 152 10^3/cmm (130-400); Red Blood Count 4.77 10^6/uL (4.1-5.3); Red Cell Distribution Width 12.2 % (12.1-15.1); White Blood Count 8.5 10^3/uL (4.0-10.0)
[2021-09-30 05:45] LABS: Anion Gap 19.6 (5-19); Blood Urea Nitrogen 19 mg/dL (8-23); Calcium 8.9 mg/dL (8.5-10.5); Carbon Dioxide 21 mmol/L (22-29); Chloride 100 mmol/L (98-107); Glomerular Filtration Rate 71.8 mL/min (90-130); Glucose 235 mg/dL (65-115); Osmolality Calculated 294 mOsm/kg (285-295); Potassium 3.6 mmol/L (3.5-5.1); Sodium 137 mmol/L (136-145)
[2021-09-30 06:45] LABS: Glucose Point of Care 240 mg/dL (70-110)
[2021-09-30 07:35] VITALS: BP 180/90; PULSE 100; RESP 16; TEMP 36.5; O2SAT 95
--- NOTE | 2021-09-30 07:45 | ECG_ITS ---
[facility] Test Date: 2021-09-30 Pat Name: Nikki Esteves Department: Room: 252 Gender: Female Planning Intern: : 1955 Requested By: Estefanía Kaiser Order Number: [id number] Yvette MD: Carlos Boyd M.D. Measurements Intervals [place] Rate: 112 P: 69 OK: 139 QRS: 74 QRSD: 96 T: 72 QT: 345 QTc: 472 Interpretive Statements SINUS TACHYCARDIA WITH OCCASIONAL VENTRICULAR PREMATURE COMPLEXES Compared to ECG 09/28/2021 19:01:08 Ventricular premature complex(es) now present Sinus rhythm no longer present Sinus arrhythmia no longer present Electronically Signed On 09-30-2021 19:51:27 WINDOW SHADE ESTIMATOR by Carlos Boyd M.D. [id number]
[2021-09-30 08:47] VITALS: BP 180/90
[2021-09-30] MEDS: losartan 50 mg Tablet PO (08:47)
[2021-09-30] MEDS: atorvastatin 40 mg Tablet PO (08:48)
[2021-09-30] MEDS: apixaban 5 mg Tablet PO (08:48)
[2021-09-30] MEDS: insulin lispro 100 unit/1 mL SUBCUT ×2 (08:49→12:10)
[2021-09-30] MEDS: cilostazol 100 mg Tablet 50 MG PO (08:49)
[2021-09-30] MEDS: nicotine 14 mg Patch 1 PATCH TRANSDERMA (08:50)
[2021-09-30 10:56] LABS: Glucose Point of Care 413 mg/dL (70-110)
[2021-09-30 11:40] VITALS: BP 167/82; PULSE 114; RESP 18; TEMP 36.6; O2SAT 95
[2021-09-30] MEDS: sodium chloride 0.9% 500 ML IV (12:00)
--- NOTE | 2021-09-30 13:43 | PC.CHAP ---
Pastoral Care Encounter/Spiritual Assessment Type of Contact [] Declined vascular tech visit [] Patient/Family/Request visit [] Outpatient visit [] Follow-up visit [] Physician referral [] Code/Alert [xx] Routine visit [] Staff referral [] Actively dying [] Patient sleeping [] Family support [] [] Out of room [] Palliative care [] [] Receiving care in room [] Pre-surgical visit [] Trauma [] Long length of stay [] ICU visit [] Other: Relational/Emotional Strength [xx] Patient feels connected with others/family/visitors/staff [] Distress [] Loneliness/isolation [] Abandonment Spirituality of Patient [xx] Person of Jenny [] Attends Christianity of their Jenny [x] Believes in Prayer [xx] Reads Bible or Pentecostalism materials [] There are Spiritual issues to be addressed Nursing Home Social Worker Interventions [xx] Prayer [xx] Active listening [xx] Non-anxious presence [] Spiritual/emotional support [] Crisis/trauma care [] Spiritual counseling [] Bereavement support [] Provided bereavement packet [xx] Provided Bible/devotional materials [] Provided toy/stuffed animal, coloring book to patient or family member [] Provided Communion [] Anointing/[place] [] Salvation [xx] Completed spiritual assessment [] Other: Impact on Illness or Injury [] Angry [] Fearful [] Anxious [] Often cries [] Exhaustion [] Unable to work [] Unable to attend congregation [] Unable to walk/stand [] Unable to read [] Unable to drive [] Unable to eat/drink [] Unable to sleep [] Unable to be with family [] Patient intubated [] Other: Summary Patient is a very pleasant lady and easy to talk to. She stated she is much better and is being discharged later today and mita't wait to get home. Time spent with patient 12 minutes
--- NOTE | 2021-09-30 15:52 | PC.NURSE ---
student nurse all the student nurse documentation verified by this instructor for 09/30/21
[2021-09-30 16:00] VITALS: BP 164/81; PULSE 87; RESP 18; TEMP 36.8; O2SAT 94
--- NOTE | 2021-09-30 16:58 | P.DS_ITS ---
Discharge Providers Date of Admission: 09/28/21 20:02 Date of Discharge: September 30, 2021 Attending Provider at Admission: Ramírez Crenshaw Attending Provider at Discharge: Estefanía Kaiser MD Primary Care Provider: Nikki Rahman DO Diagnoses at Discharge Discharge Diagnosis (1) Altered mental status: Status: Acute (2) Weakness: Status: Acute (3) Dehydration: Status: Acute (4) UTI (urinary tract infection): Status: Acute Reason for Visit Reason for Visit: LARGE SWELLING TO THE EYE/ LEFT ARM Hospital Course Hospital Course HPI as per Dr. Crenshaw: Nikki Esteves is a 65 year old female was found confused on the floor of her house. Was seen in her regular state of health about 2 days ago. Was brought by EMS to emergency room. Here her mental status improved. She is currently awake and alert. However she is noncooperative. She is not willing to answer to my questions and did not allow me to examine her. She denies any active complaints. She answers no to every question that I asked. Her past medical history is unknown. Course: History was obtained today from the family. I spoke to patient's both sons over the phone and a conference call. They state patient does fall frequently at home on a daily basis and lives alone. She has had a stroke prior but they were unable to tell me how long ago. She also is a history of having an HI in the past and has placed cardiac stents. She does have diabetes mellitus with a high hemoglobin A1c but has not been placed on insulin by primary care doctor because patient is noncompliant with her medications and does tend to overdose on her meds because she sometimes forget if she has taken medications or not. Patient also is on Eliquis and cilostazol. One of the patient's son also states that patient has been taking pain pills including Xanax and if the doctor does not prescribe any she will tend to buy from the street. But they also state that recently they do not believe she has been taking any of those medications. They believe patient has peripheral neuropathy and cannot feel her feet and that is why tends to fall a lot. She did have a work-up done at [facility] and there was peripheral arterial disease diagnosed. The son states that there was 60 to 70% blockage in the vessels in her legs he does not remember which doctor they saw and does not remember any other specifics. Patient's primary care doctor is Dr. Reilly in [place]. [phone]. Patient is a smoker but does not drink alcohol. In the past multiple times a correction or shelter facility placement has been brought up by the family but patient did not want to go there because she did not like the fact that her medications will be monitored. Both her sons believe that this is probably the reason why she opted not to go to a nursing facility. They do acknowledge that patient could benefit from a supervised living facility at this point due to patient's multiple fall history, being on a blood thinner and tending to overdose on medications. He also states she has good days and bad days and baseline she does have some confusion. They are unsure of her eating habits. Nearest family lives 5 hours away. When seen on the day of discharge. Patient totally alert and oriented. He has refused to go to a correction at this point. She also states that she never fell multiple times at home and she only fell once. He states he has a very good support system her granddaughter comes over every day to take care of her and manage her medications with her. She states she would like to go home at this point. She also promises to go and follow-up with her primary care doctor. She also worked with physical therapy and did well. She did qualify for home health. She is agreeable to have a nurse come over to her house to check up on her. I called her primary care doctor Dr. Reilly and discussed her case with him. I also told him about the medication changes made with the patient at this visit. He stated that the patient was noncompliant to medications and she also does not frequently follow-up with him but he really hopes at this time she will come and see him. He last saw her in May. He also states that patient drinks alcohol as well. When I asked the patient about this she denied drinking alcohol. Patient is competent and able to make her own medical decisions. There was no infection seen during this hospital stay and patient clinically appears well. She will be discharged home with home health. Home health will be set up as an outpatient most likely as patient does not want to wait in the hospital for it to be all set before she leaves. She will see Dr. Reilly outpatient in his office. Patient's nurse was present the whole time when I was talking to the patient. She also spoke to case management. She appeared really well and totally mentally okay at time of discharge. Physical Exam Narrative: EXAM NARRATIVE: General: Alert oriented x3, patient seen sitting up in bed appearing comfortable. HEENT: Normocephalic, atraumatic, EOMI, breathing room air. Patient does have a bruise around her left eye. Head does not have any lesions or signs of trauma. Cardio: Regular rate rhythm, normal S1-S2, no murmurs rubs gallops, Respiratory: Diminished bilateral air entry, no wheezes no rhonchi appreciated GI: Abdomen soft, nontender, nondistended, bowel sounds + Behavior: Appropriate and cooperative Extremities: Pulses 2+, no edema, no cyanosis. No tenderness to palpation at extremities. Neuro: Neurologically intact no focal neurological deficits. Able to walk okay and not falling. Did well with physical therapy. Discharge Data Data Completed and Pending: Completed Studies During Hospitalization Category Date Time Status CT cervical spin wo con* 10384 Urge nt Cat Scan 09/28/21 18:[address] facial bones w o con* 76110 Urgen t Cat Scan 09/28/21 18:[address] head wo con* 7 0450 Urgent Cat Scan 09/28/21 18:01 Completed XR chest 1V ketan ble 35856 Urgent Exams 09/28/21 18:01 Completed XR elbow LT min 3 V* [id number] Stat Exams 09/28/21 18:50 Completed Pending at discharge Category Date Time Status Blood Culture Sta t Lab 09/28/21 19:25 Results Urine Culture Sta t Lab 09/28/21 18:02 Results Labs from last 24 hours 09/30/21 09/30/21 09/30/21 10:40 06:22 05:06 WBC RBC Hgb Hct MCV MCH MCHC RDW Plt Count MPV Neut % (Auto) Lymph % (Auto) [place] % (Auto) Eos % (Auto) Baso % (Auto) Neut # (Auto) Lymph # (Auto) [place] # (Auto) Eos # (Auto) Baso # (Auto) Nucleated RBC % (a uto) Nucleated RBCs # Sodium 137 Potassium 3.6 Chloride 100 Carbon Dioxide 21 L Anion Gap 19.6 H BUN 19 Creatinine 0.8 GFR Calculation 71.8 L Glucose 235 H POC Glucose 413 H 240 H Calculated Osmolal ity 294 Calcium 8.9 09/30/21 09/29/21 09/29/21 05:06 21:06 16:28 WBC 8.5 RBC 4.77 Hgb 15.3 Hct 46.0 MCV 96.4 MCH 32.1 MCHC 33.3 RDW 12.2 Plt Count 152 MPV 9.6 Neut % (Auto) 57.2 Lymph % (Auto) 28.8 [place] % (Auto) 9.8 Eos % (Auto) 2.9 Baso % (Auto) 0.9 Neut # (Auto) 4.88 Lymph # (Auto) 2.5 [place] # (Auto) 0.8 Eos # (Auto) 0.3 Baso # (Auto) 0.1 Nucleated RBC % (a uto) 0 Nucleated RBCs # 0.0 Sodium Potassium Chloride Carbon Dioxide Anion Gap BUN Creatinine GFR Calculation Glucose POC Glucose 170 H 290 H Calculated Osmolal ity Calcium Vitals: Last Vital Signs Temp 98.2 F 09/30/21 16:00 Pulse 87 09/30/21 16:00 Resp 18 09/30/21 16:00 BP 164/81 09/30/21 16:00 Pulse Ox 94 09/30/21 16:00 Discharge Plan Discharge Patient Disposition: Home Health Service Condition: Stable Prescriptions: New sitagliptin 25 mg tablet 50 mg PO DAILY 30 Days Qty: 30 RF: 0 Eliquis 5 mg Tablet 5 mg PO BID 30 Days Qty: 60 RF: 0 Continued atorvastatin 40 mg tablet 40 mg PO DAILY RF: 0 trazodone 50 mg tablet 50 mg PO BEDTIME RF: 0 cilostazol 50 mg tablet 50 mg PO BID RF: 0 amitriptyline 50 mg tablet 50 mg PO BEDTIME RF: 0 Changed metformin 500 mg tablet 1,000 mg PO BID 30 Days Qty: 30 RF: 0 losartan 25 mg tablet 50 mg PO DAILY 30 Days Qty: 30 RF: 0 Held baclofen 10 mg tablet 10 mg PO BID RF: 0 Hold Instructions: see pcp Vitamin D2 1,250 mcg (50,000 unit) Capsule 50,000 unit PO Q7D RF: 0 Hold Instructions: see pcp glipizide 5 mg tablet 5 mg PO BID RF: 0 Hold Instructions: see pcp Discontinued Eliquis 5 mg tablet 5 mg PO BID RF: 0 Eliquis 5 mg tablet 5 mg RF: 0 Discharge Orders: Discharge Order (Routine); Ordered 09/30/21 Ordered By: Estefanía Kaiser Referrals: [facility] [Other] Jordin Shrestha [Referring] - 1 week (Please call on Sunday to schedule an appointment to be seen in one week.) Discharge Diet: Diabetic, Low Cholesterol and Low Fat Discharge Activity: Resume usual activity Patient Instructions: Sitagliptin (By mouth) (Januvia), Apixaban (By mouth) (Eliquis), Dehydration (DC), Urinary Tract Infection in Women (DC), Opioid Safety Discharge Attestations Time Spent in Discharge Care*: greater than 30 min Quality Metrics Clinical Quality Measures During this hospital stay, did patient experience: None Coding Level of Care Code Acute Chg FW DC note Diagnoses Altered mental status R41.82 Weakness R53.1 Dehydration E86.0 UTI (urinary tract infection) N39.0
[2021-09-30 17:05] LABS: Glucose Point of Care 235 mg/dL (70-110)
== END 2021-09-30 17:15 | disposition home or self-care (01) | DRG 690 ==
LOC: ER 20:00 → MEDSURG 22:14
PROVIDERS: Family Medicine; Admitting Provider Internal Medicine; Emergency Provider Emergency Medicine; PCP Family Medicine; Visit Provider Internal Medicine
DX: N39.0 Urinary tract infection, site not specified (principal); E86.0 Dehydration; E11.65 Type 2 diabetes mellitus with hyperglycemia; E11.42 Type 2 diabetes mellitus with diabetic polyneuropathy; E11.51 Type 2 diabetes mellitus with diabetic peripheral angiopathy without gangrene; Z86.73 Personal history of transient ischemic attack (TIA), and cerebral infarction without residual deficits; I25.2 Old myocardial infarction; I25.10 Atherosclerotic heart disease of native coronary artery without angina pectoris; Z95.5 Presence of coronary angioplasty implant and graft; Z91.14 Patient's other noncompliance with medication regimen; R29.6 Repeated falls; F17.210 Nicotine dependence, cigarettes, uncomplicated
CPT/HCPCS: 36415; 36416; 70450; 70486; 71045; 72125; 73080; 80048; 80053; 80306; 80307; 81001; 82550; 82607; 82746; 82962; 83036; 83735; 84100; 85025; 85610; 87040; 87086; 93005; 96365; 96372; 97110; 97116; 97161; 97165; 97530; 99285; J0696; J1815; J7030; J7040